=== PATIENT | female | born 1955 | race Caucasian/White ===

== ENCOUNTER 2024-06-16 16:39 | Observation (INO) | payer MEDICARE ==
[2024-06-16 19:31] LABS: Absolute Neutrophil Ct (ANC) 5.96 x10^3/uL (1.56-6.13); BASOPHIL % 0.3 % (0.1-1.2); Basophil (Absolute #) 0.02 x10^3/uL (0.01-0.08); Eosinophil % 2.2 % (0.7-5.8); Eosinophil (Absolute #) 0.17 x10^3/uL (0.04-0.36); Hematocrit 33.6 % (34.1-44.9); Hemoglobin 10.5 g/dL (11.2-15.7); IMMATURE GRAN # 0.04 x10^3u/L (0.001-0.031); IMMATURE GRAN % 0.5 % (0.001-0.429); Lymphocyte (Absolute #) 1.09 x10^3/uL (1.18-3.74); Mean Cell Volume 92.8 fL (79.4-94.8); Mean Corpuscular Hgb Concent. 31.3 g/dL (32.2-35.5); Mean Platelet Volume 10.5 fL (9.4-12.3); Monocyte (Absolute #) 0.48 x10^3/uL (0.24-0.86); Monocytes % 6.2 % (4.7-12.5); Neutrophil % 76.8 % (34.0-71.1); Platelet Count 246 x10^3/uL (182-369); Red Blood Count 3.62 x10^6/uL (3.93-5.22); Red Cell Distribution Width 12.5 % (11.7-14.4); White Blood Count 7.8 x10^3/uL (3.98-10.04)
[2024-06-16] MEDS ORDERED: Zofran 4 MG/2 ML VIAL ONE (19:33)
[2024-06-16] MEDS ORDERED: Sodium Chloride 0.9% 500 ML 500 ML IV ONE (19:33)
[2024-06-16] MEDS: Zofran 4 MG/2 ML VIAL IV ONE (19:35)
[2024-06-16] MEDS: Sodium Chloride 0.9% 500 ML 500 ML IV ONE (19:35)
[2024-06-16 19:41] LABS: Appearance Cloudy (Clear); Bacteria None Seen /HPF (None Seen); Bilirubin Negative (Negative); Blood Negative (Negative); Epithelial Cells None Seen /HPF (None Seen); Glucose, Urine >=1000 mg/dL (Negative); Hyaline Casts 20-50 /LPF (0-2); Ketones Negative (Negative); Leukocyte Esterase Small (Negative); Nitrite Negative (Negative); Ph 5.5 (4.6-8.0); Protein,Urine Dip 30 (Negative); RBC 0-2 /HPF (0-5); Specific Gravity 1.025 (1.005-1.030); WBC 21-50 /HPF (0-5)
[2024-06-16 19:42] LABS: ADD URINE CULTURE? YES (NO)
[2024-06-16 19:45] LABS: ALBUMIN 4.5 g/dL (3.5-5.0); ANION GAP 14.9 MEQ/L (5-15); BILIRUBIN,TOTAL 0.6 mg/dL (0.2-1.3); Calcium 10.1 mg/dL (8.4-10.2); Creatinine 1 1.91 mg/dL (0.52-1.04); EST GLOMERULAR FILTRATION RATE 27.7 ML/MIN; Total Protein 7.3 g/dL (6.3-8.2)
--- NOTE | 2024-06-16 19:51 | ERPHSYRPT ---
- History of Present Illness Time Seen by Provider: 06/16/24 19:10 Source: patient Exam Limitations: no limitations Patient Subjective Stated Complaint: pt states that she has been vomiting since thursday Triage Nursing Assessment: pt ambulated into the er; pt is axo x4; c/o vomiting; pt states 6/10 pain to head and abd; hyperactive bowel sounds in all quads; c/o N/V; denies diarrhea; abd soft, tender, round; skin PDW; no respiratory distress present; hypertensive Physician History: 69-year-old female presented in the ER with complaints of aches and pains all over with associated nausea and vomiting. Patient reports she had a positive contact with COVID-19 few days ago. This has been going on for the last 2 to 3 days ago. Patient denies any abdominal pain but feels weak fatigued tired and dehydrated. Reports having nonprojectile, nonbilious vomiting without hematemesis. No diarrhea. Also reported having subjective feeling of fever chills and headache and URI symptoms with congestion but no cough. Allergies/Adverse Reactions: temazepam [From Restoril] Allergy (Unknown, Verified 06/16/24 19:15) SHAKING Penicillins Allergy (Verified 06/16/24 19:15) Hives Home Medications: Aspirin EC 81 mg [Ecotrin 81 mg] 81 mg PO DAILY 08/09/12 [History] Metoprolol Tartrate 50 mg [Lopressor 50 MG] 100 mg PO BID 08/09/12 [History] Amlodipine Besylate 5 mg [Norvasc 5 mg] 2.5 mg PO HS 11/22/13 [History] Buprenorphine 1 each TD WEEKLY 06/16/24 [History] Bupropion HCl 150 mg Sr [Wellbutrin SR 150 MG] 150 mg PO DAILY 06/16/24 [History] Cetirizine HCl [Allergy Relief] 10 mg PO DAILY 06/16/24 [History] Empagliflozin [Jardiance] 10 mg PO DAILY 06/16/24 [History] Evolocumab [Repatha Sureclick] 140 mg SQ UD 06/16/24 [History] Fenofibrate Nanocrystallized [Fenofibrate] 145 mg PO DAILY 06/16/24 [History] Levothyroxine Sodium 88 Mcg [Synthroid 88 Mcg] 88 mcg PO DAILY 06/16/24 [History] Lisinopril/Hydrochlorothiazide [Lisinopril-Hctz 10-12.5 mg Tab] 1 each PO DAILY 06/16/24 [History] Multivit-Min/Iron/Folic/Lutein [Multivitamin Women 50 Plus Tab] 1 each PO DAILY 06/16/24 [History] Pantoprazole Sodium 40 mg PO DAILY 06/16/24 [History] Quetiapine Fumarate 50 mg PO BID 06/16/24 [History] Quetiapine Fumarate 300 mg PO HS 06/16/24 [History] Semaglutide [Ozempic] 1 mg SQ WEEKLY 06/16/24 [History] Trazodone HCl 50 mg [Desyrel 50 mg] 25 mg PO HS 06/16/24 [History] Hx Tetanus, Diphtheria Vaccination/Date Given: No Hx Influenza Vaccination/Date Given: No Hx Pneumococcal Vaccination/Date Given: No Travel Risk - International Travel Have you traveled outside of the country in past 3 weeks: No - Emerging Infectious Disease Are you exhibiting symptoms associated with any current EIDs: Yes Symptoms: Abdominal Pain, Headaches/Body Aches/, Vomitting - Review of Systems Constitutional: Fever, Chills, Fatigue, Weakness Eyes: No Symptoms Ears, Nose, & Throat: No Symptoms Respiratory: No Symptoms Cardiac: No Symptoms Abdominal/Gastrointestinal: Nausea, Vomiting Genitourinary Symptoms: No Symptoms Musculoskeletal: Myalgias Neurological: Headache Psychological: No Symptoms Hematologic/Lymphatic: No Symptoms Immunological/Allergic: No Symptoms - Past Medical History Pertinent Past Medical History: Yes Neurological History: Stroke ENT History: No Pertinent History Cardiac History: High Cholesterol, Hypertension Respiratory History: No Pertinent History Endocrine Medical History: Hypothyroidism Musculoskeletal History: Arthritis GI Medical History: GERD History: No Pertinent History Psycho-Social History: Depression Female Reproductive Disorders: Menstrual Problems - Past Surgical History Past Surgical History: Yes Neuro Surgical History: No Pertinent History Cardiac: No Pertinent History Respiratory: No Pertinent History Gastrointestinal: Appendectomy, Cholecystectomy Musculoskeletal: Joint Replacement, Orthopedic Surgery Female Surgical History: Section, Hysterectomy Other Surgical History: bilatreal knee replacement, discs removed from neck and back surgery, sinus surgery, tonisils. BRAD IN SPINE - Social History Smoking Status: Never smoker Exposure to second hand smoke: Yes Drug Use: none Patient Lives Alone: No - Social Determinants of Health Will the patient participate in the screening: Yes Do you worry about a steady place to live?: No Do you have any problems with any of the following?: No known problems In the past 12 months,have you had to go without utilities?: No Transportation Issues: No Has anyone in your support network made you feel unsafe?: No Have you or anyone in your house had to go without enough: No - Nursing Vital Signs Nursing Vital Signs: Initial Vital Signs Temperature 98.6 F 06/16/24 19:26 Pulse Rate 78 06/16/24 19:26 Respiratory Rate 18 06/16/24 19:26 Blood Pressure 146/70 06/16/24 19:26 O2 Sat by Pulse Oximetry 99 06/16/24 19:26 Pain Scale Pain Intensity 8 - Physical Exam General Appearance: no apparent distress, alert Eye Exam: PERRL/EOMI Ears, Nose, Throat Exam: moist mucous membranes, pharyngeal erythema Neck Exam: normal inspection, non-tender, supple, full range of motion Respiratory Exam: normal breath sounds, lungs clear Cardiovascular Exam: regular rate/rhythm, normal heart sounds Gastrointestinal/Abdomen Exam: soft, No normal bowel sounds (Hyperactive), No tenderness, No distention, No guarding Back Exam: normal inspection, normal range of motion Extremity Exam: normal inspection, normal range of motion Neurologic Exam: alert, oriented x 3, cooperative Skin Exam: normal color SpO2 Interpretation: normal SpO2: 98 O2 Delivery: Room Air - Course EKG Interpreted by Me: RATE (82), Sinus Rhythm, NORMAL INTERVALS, Q-wave, Non- specific ST Changes Ordered Tests: Medication Summary Generic Name Dose Route Start Last Admin Trade Name Freq PRN Reason Stop Dose Admin Acetaminophen 650 mg 06/17/24 16:45 06/17/24 17:05 Acetaminophen 325 Mg Tablet PO 07/17/24 16:44 650 mg Q6H PRN PRN Administration PAIN AND/OR FEVER Amlodipine Besylate 2.5 mg 06/17/24 22:00 06/17/24 21:41 Amlodipine Besylate 5 Mg Tablet PO 07/17/24 21:59 2.5 mg HS LAINEY Administration Aspirin 81 mg 06/17/24 10:00 06/18/24 10:06 Aspirin 81 Mg Tablet.Ec PO 09/29/24 09:59 81 mg DAILY LAINEY Administration Bupropion HCl 150 mg 06/17/24 10:00 06/18/24 10:06 Bupropion Hcl 150 Mg Tablet Sr PO 07/17/24 09:59 150 mg DAILY LAINEY Administration Fenofibrate 145 mg 06/17/24 10:00 06/18/24 10:06 Fenofibrate,Micronized 145 Mg Tablet PO 07/17/24 09:59 145 mg DAILY LAINEY Administration Heparin Sodium (Beef Lung) 5,000 unit 06/17/24 10:00 06/18/24 10:06 Heparin 5000 Units/0.5 Ml 5,000 Unit/0.5 Ml Syr SQ 07/17/24 09:59 5,000 unit BID LAINEY Administration Levothyroxine Sodium 88 mcg 06/17/24 10:00 06/18/24 07:43 Levothyroxine Sodium 88 Mcg Tablet PO 07/17/24 09:59 88 mcg DAILY LAINEY Administration Loratadine 10 mg 06/17/24 10:00 06/18/24 10:05 Loratadine 10 Mg Tablet PO 07/17/24 09:59 10 mg DAILY LAINEY Administration Metoprolol Tartrate 100 mg 06/17/24 10:00 06/18/24 10:05 Metoprolol Tartrate 50 Mg Tablet PO 07/17/24 09:59 100 mg BID LAINEY Administration Miscellaneous Information 1 each 06/17/24 08:15 Medication Intervention 1 Each Each 07/17/24 08:14 .RN TO CHECK LAINEY Multivitamins Therapeutic 1 tab 06/17/24 10:00 06/18/24 10:06 Multivitamins,Therapeutic 1 Tab Tab PO 07/17/24 09:59 1 tab DAILY LAINEY Administration Ondansetron HCl 4 mg 06/17/24 01:52 06/17/24 06:09 Ondansetron Hcl 4 Mg/2 Ml Vial IV 07/17/24 01:51 4 mg Q4H PRN PRN Administration NAUSEA/VOMITING Pantoprazole Sodium 40 mg 06/17/24 10:00 06/18/24 10:06 Protonix (Pantoprazole) 40 Mg Tablet PO 07/17/24 09:59 40 mg DAILY LAINEY Administration Quetiapine Fumarate 50 mg 06/17/24 08:00 06/18/24 07:43 Quetiapine Fumarate 25 Mg Tablet PO 07/17/24 07:59 50 mg BIDWM LAINEY Administration Quetiapine Fumarate 300 mg 06/17/24 22:00 06/17/24 21:41 Quetiapine Fumarate 100 Mg Tablet PO 07/17/24 21:59 300 mg HS LAINEY Administration Trazodone HCl 25 mg 06/17/24 22:00 06/17/24 21:32 Trazodone Hcl 50 Mg Tablet PO 07/17/24 21:59 25 mg HS LAINEY Administration Discontinued Medications Generic Name Dose Route Start Last Admin Trade Name Bhargavi PRN Reason Stop Dose Admin Acetaminophen 650 mg 06/16/24 23:29 06/16/24 23:40 Acetaminophen 325 Mg Tablet PO 06/16/24 23:30 650 mg STAT STA Administration Acetaminophen Confirm 06/16/24 23:28 Acetaminophen 325 Mg Tablet Administered 06/16/24 23:29 Dose 975 mg .ROUTE .STK-MED ONE Amlodipine Besylate 2.5 mg 06/17/24 06:06 06/17/24 06:13 Amlodipine Besylate 5 Mg Tablet PO 06/17/24 06:07 2.5 mg STAT ONE Administration Sodium Chloride 500 mls @ 500 mls/hr 06/16/24 19:15 06/16/24 21:16 Sodium Chloride 0.9% 500 Ml IV 06/16/24 20:14 Infused .Q1H ONE Infusion Sodium Chloride Confirm 06/16/24 19:33 Sodium Chloride 0.9% 500 Ml Administered 06/16/24 19:34 Dose 500 mls @ ud IV .STK-MED ONE Ceftriaxone Sodium 1 gm in 100 mls @ 200 mls/hr 06/16/24 20:42 06/16/24 21:16 Rocephin 1 Gm / 100 Ml Nacl IV 06/16/24 21:11 Infused STAT ONE Infusion Ceftriaxone Sodium Confirm 06/16/24 20:44 Rocephin 1 Gm / 100 Ml Nacl Administered 06/16/24 20:45 Dose 1 gm in 100 mls @ ud IV .STK-MED ONE Lactated Ringer's 1,000 mls @ 100 mls/hr 06/17/24 02:00 06/18/24 01:10 Lactated Ringers IV 07/17/24 01:59 100 mls/hr .Q10H LAINEY Administration Ceftriaxone Sodium 1 gm in 100 mls @ 200 mls/hr 06/17/24 22:00 06/17/24 21:19 Rocephin 1 Gm / 100 Ml Nacl IV 07/17/24 21:59 200 mls/hr HS LAINEY Administration Potassium Chloride 100 mls @ 50 mls/hr 06/17/24 08:00 06/17/24 14:04 Potassium Chloride 20 Meq In Water 100ml IV 06/17/24 15:59 50 mls/hr Q2H LAINEY Administration Ondansetron HCl 4 mg 06/16/24 19:14 06/16/24 19:35 Ondansetron Hcl 4 Mg/2 Ml Vial IV 06/16/24 19:15 4 mg STAT ONE Administration Ondansetron HCl Confirm 06/16/24 19:33 Ondansetron Hcl 4 Mg/2 Ml Vial Administered 06/16/24 19:34 Dose 4 mg .ROUTE .STK-MED ONE Trazodone HCl 25 mg 06/17/24 23:29 06/16/24 23:40 Trazodone Hcl 50 Mg Tablet PO 06/17/24 23:30 25 mg STAT ONE Administration Trazodone HCl Confirm 06/16/24 23:35 Trazodone Hcl 50 Mg Tablet Administered 06/16/24 23:36 Dose 50 mg .ROUTE .STK-MED ONE Lab/Rad Data: Laboratory Result Diagrams 06/16/24 19:15 06/16/24 19:15 Laboratory Results 06/16/24 06/16/24 06/16/24 Range/Units 19:53 19:31 19:31 WBC (3.98-10.04) x10^3/uL RBC (3.93-5.22) x10^6/uL Hgb (11.2-15.7) g/dL Hct (34.1-44.9) % MCV (79.4-94.8) fL MCH (25.6-32.2) pg MCHC (32.2-35.5) g/dL RDW (11.7-14.4) % Plt Count (182-369) x10^3/uL MPV (9.4-12.3) fL Gran % (34.0-71.1) % Immature Gran % (Auto) (0.001-0.429) % Nucleat RBC Rel Count (0.00-0.2) % Eos # (Auto) (0.04-0.36) x10^3/uL Immature Gran # (Auto) (0.001-0.031) x10^3u/L Absolute Lymphs (auto) (1.18-3.74) x10^3/uL Absolute Monos (auto) (0.24-0.86) x10^3/uL Absolute Nucleated RBC (0.00-0.012) x10^3u/L Lymphocytes % (19.3-51.7) % Monocytes % (4.7-12.5) % Eosinophils % (0.7-5.8) % Basophils % (0.1-1.2) % Absolute Granulocytes (1.56-6.13) x10^3/uL Basophils # (0.01-0.08) x10^3/uL Sodium (135-145) mmol/L Potassium (3.5-5.1) mmol/L Chloride (98-107) mmol/L Carbon Dioxide (22-30) mmol/L Anion Gap (5-15) MEQ/L BUN (7-17) mg/dL Creatinine (0.52-1.04) mg/dL Estimated GFR ML/MIN Glucose (74-106) mg/dL Lactic Acid 0.7 (0.4-2.0) Calcium (8.4-10.2) mg/dL Total Bilirubin (0.2-1.3) mg/dL AST (14-36) U/L ALT (0-35) U/L Alkaline Phosphatase (38-126) U/L Troponin I (0.000-0.033) ng/mL Serum Total Protein (6.3-8.2) g/dL Albumin (3.5-5.0) g/dL Lipase (23-300) U/L Urine Color (Yellow) Urine Appearance (Clear) Urine pH (4.6-8.0) Ur Specific [place] (1.005-1.030) Urine Protein (Negative) Urine Glucose (UA) (Negative) mg/dL Urine Ketones (Negative) Urine Blood (Negative) Urine Nitrite (Negative) Urine Bilirubin (Negative) Urine Urobilinogen (0.2) mg/dL Ur Leukocyte Esterase (Negative) U Hyaline Cast (Auto) (0-2) /LPF Urine Microscopic RBC (0-5) /HPF Urine Microscopic WBC (0-5) /HPF Ur Epithelial Cells (None Seen) /HPF Urine Bacteria (None Seen) /HPF Urine Culture Reflexed (NO) Influenza Type A Ag NEGATIVE (NEGATIVE) Influenza Type B Ag NEGATIVE (NEGATIVE) RSV (PCR) NEGATIVE (NEGATIVE) SARS-CoV-2 (PCR) NEGATIVE (NEGATIVE) Group A Strep Antibody NOT DETECTED (NEGATIVE) 06/16/24 06/16/24 06/16/24 Range/Units 19:15 19:15 19:15 WBC (3.98-10.04) x10^3/uL RBC (3.93-5.22) x10^6/uL Hgb (11.2-15.7) g/dL Hct (34.1-44.9) % MCV (79.4-94.8) fL MCH (25.6-32.2) pg MCHC (32.2-35.5) g/dL RDW (11.7-14.4) % Plt Count (182-369) x10^3/uL MPV (9.4-12.3) fL Gran % (34.0-71.1) % Immature Gran % (Auto) (0.001-0.429) % Nucleat RBC Rel Count (0.00-0.2) % Eos # (Auto) (0.04-0.36) x10^3/uL Immature Gran # (Auto) (0.001-0.031) x10^3u/L Absolute Lymphs (auto) (1.18-3.74) x10^3/uL Absolute Monos (auto) (0.24-0.86) x10^3/uL Absolute Nucleated RBC (0.00-0.012) x10^3u/L Lymphocytes % (19.3-51.7) % Monocytes % (4.7-12.5) % Eosinophils % (0.7-5.8) % Basophils % (0.1-1.2) % Absolute Granulocytes (1.56-6.13) x10^3/uL Basophils # (0.01-0.08) x10^3/uL Sodium 139 (135-145) mmol/L Potassium 4.0 (3.5-5.1) mmol/L Chloride 99 (98-107) mmol/L Carbon Dioxide 29 (22-30) mmol/L Anion Gap 14.9 (5-15) MEQ/L BUN 36 H (7-17) mg/dL Creatinine 1.91 H (0.52-1.04) mg/dL Estimated GFR 27.7 ML/MIN Glucose 98 (74-106) mg/dL Lactic Acid (0.4-2.0) Calcium 10.1 (8.4-10.2) mg/dL Total Bilirubin 0.60 (0.2-1.3) mg/dL AST 56 H (14-36) U/L ALT 33 (0-35) U/L Alkaline Phosphatase 49 (38-126) U/L Troponin I < 0.012 (0.000-0.033) ng/mL Serum Total Protein 7.3 (6.3-8.2) g/dL Albumin 4.5 (3.5-5.0) g/dL Lipase 220 (23-300) U/L Urine Color Yellow (Yellow) Urine Appearance Cloudy A (Clear) Urine pH 5.5 (4.6-8.0) Ur Specific [place] 1.025 (1.005-1.030) Urine Protein 30 (Negative) Urine Glucose (UA) >=1000 A (Negative) mg/dL Urine Ketones Negative (Negative) Urine Blood Negative (Negative) Urine Nitrite Negative (Negative) Urine Bilirubin Negative (Negative) Urine Urobilinogen 1.0 A (0.2) mg/dL Ur Leukocyte Esterase Small A (Negative) U Hyaline Cast (Auto) 20-50 (0-2) /LPF Urine Microscopic RBC 0-2 (0-5) /HPF Urine Microscopic WBC 21-50 A (0-5) /HPF Ur Epithelial Cells None Seen (None Seen) /HPF Urine Bacteria None Seen (None Seen) /HPF Urine Culture Reflexed YES (NO) Influenza Type A Ag (NEGATIVE) Influenza Type B Ag (NEGATIVE) RSV (PCR) (NEGATIVE) SARS-CoV-2 (PCR) (NEGATIVE) Group A Strep Antibody (NEGATIVE) 06/16/24 Range/Units 19:15 WBC 7.8 (3.98-10.04) x10^3/uL RBC 3.62 L (3.93-5.22) x10^6/uL Hgb 10.5 L (11.2-15.7) g/dL Hct 33.6 L (34.1-44.9) % MCV 92.8 (79.4-94.8) fL MCH 29.0 (25.6-32.2) pg MCHC 31.3 L (32.2-35.5) g/dL RDW 12.5 (11.7-14.4) % Plt Count 246 (182-369) x10^3/uL MPV 10.5 (9.4-12.3) fL Gran % 76.8 H (34.0-71.1) % Immature Gran % (Auto) 0.5 H (0.001-0.429) % Nucleat RBC Rel Count 0.0 (0.00-0.2) % Eos # (Auto) 0.17 (0.04-0.36) x10^3/uL Immature Gran # (Auto) 0.04 H (0.001-0.031) x10^3u/L Absolute Lymphs (auto) 1.09 L (1.18-3.74) x10^3/uL Absolute Monos (auto) 0.48 (0.24-0.86) x10^3/uL Absolute Nucleated RBC 0.00 (0.00-0.012) x10^3u/L Lymphocytes % 14.0 L (19.3-51.7) % Monocytes % 6.2 (4.7-12.5) % Eosinophils % 2.2 (0.7-5.8) % Basophils % 0.3 (0.1-1.2) % Absolute Granulocytes 5.96 (1.56-6.13) x10^3/uL Basophils # 0.02 (0.01-0.08) x10^3/uL Sodium (135-145) mmol/L Potassium (3.5-5.1) mmol/L Chloride (98-107) mmol/L Carbon Dioxide (22-30) mmol/L Anion Gap (5-15) MEQ/L BUN (7-17) mg/dL Creatinine (0.52-1.04) mg/dL Estimated GFR ML/MIN Glucose (74-106) mg/dL Lactic Acid (0.4-2.0) Calcium (8.4-10.2) mg/dL Total Bilirubin (0.2-1.3) mg/dL AST (14-36) U/L ALT (0-35) U/L Alkaline Phosphatase (38-126) U/L Troponin I (0.000-0.033) ng/mL Serum Total Protein (6.3-8.2) g/dL Albumin (3.5-5.0) g/dL Lipase (23-300) U/L Urine Color (Yellow) Urine Appearance (Clear) Urine pH (4.6-8.0) Ur Specific [place] (1.005-1.030) Urine Protein (Negative) Urine Glucose (UA) (Negative) mg/dL Urine Ketones (Negative) Urine Blood (Negative) Urine Nitrite (Negative) Urine Bilirubin (Negative) Urine Urobilinogen (0.2) mg/dL Ur Leukocyte Esterase (Negative) U Hyaline Cast (Auto) (0-2) /LPF Urine Microscopic RBC (0-5) /HPF Urine Microscopic WBC (0-5) /HPF Ur Epithelial Cells (None Seen) /HPF Urine Bacteria (None Seen) /HPF Urine Culture Reflexed (NO) Influenza Type A Ag (NEGATIVE) Influenza Type B Ag (NEGATIVE) RSV (PCR) (NEGATIVE) SARS-CoV-2 (PCR) (NEGATIVE) Group A Strep Antibody (NEGATIVE) - Progress Progress: improved Progress Note: 06/16/24 22:55 69-year-old is evaluated in the ER for nausea vomiting, abdominal discomfort and subjective feeling of fever chills and bodyaches. Patient has positive contact with COVID-19. She is given fluids wallets, workup showed negative COVID-19, normal white count, chemistries with a creatinine of 1.9 with a baseline of 0.9. Patient does have UTI and given a dose of Rocephin. Patient CT abdomen pelvis without contrast is negative for any acute finding but has diffuse fecal load. I believe patient has volume depletion because of vomiting, given fluids here do not I believe would benefit with continuous hydration and recheck of renal functions. Discussed with Dr. Bautista, reviewed history, workup, recommended obtaining EKG and troponin which are negative for any acute findings. Patient is being admitted. I have shared the results of workup with patient and plan of admission which she understands and agrees. Counseled pt/family regarding: lab results, diagnosis, need for follow-up, rad results Medical Desision Making - Discussion of managment Care discussed with:: hospitalist (Dr. Bautista) Reviewed:: Test results, Need for additional workup Agreed on:: Treatment plan, place in obs Will see patient: in hospital - Diagnostic Testing Diagnostic test were ordered, analyzed, and reviewed by me: Yes Radiological Interpretation: Reviewed by me, Teleradiologist Report - Risk of complications The pt has a mod risk of morbidity or mortality based on: Need for minor surgical intervention in patient with know risk factors The pt has a high risk of morbidity or mortality based on: Decision regarding hospitilization or escalation of hosp level of care - Departure Departure Disposition: Observation Clinical Impression: Acute renal failure, Viral syndrome, Nausea & vomiting, Acute UTI (urinary tract infection) Condition: Stable Critical Care Time: No
[2024-06-16 20:09] LABS: INFLUENZA A NEGATIVE (NEGATIVE); INFLUENZA B NEGATIVE (NEGATIVE); RESPIRATORY SYNCTIAL VIRUS NEGATIVE (NEGATIVE); SARS-CoV-2 Xpert Express NEGATIVE (NEGATIVE)
[2024-06-16] MEDS ORDERED: ROCEPHIN 1 GM / 100 ML NaCl 1 GM/100 ML IVPB IV ONE (20:44)
[2024-06-16] MEDS: ROCEPHIN 1 GM / 100 ML NaCl 1 GM/100 ML IVPB IV ONE (20:45)
[2024-06-16] MEDS ORDERED: TYLENOL 325 MG ONE (23:28)
[2024-06-16] MEDS ORDERED: DESYREL 50 MG ONE (23:35)
[2024-06-16] MEDS: TYLENOL 325 MG PO STA (23:40)
[2024-06-16] MEDS: DESYREL 50 MG PO ONE (23:40)
[2024-06-17] MEDS ORDERED: NON-FORMULARY ITEM (Semaglutide [Ozempic] 1 MG/0.75 ML Pen.Injctr) SQ SCH (01:45)
--- NOTE | 2024-06-17 01:56 | PCM.HP ---
History of Present Illness - Chief Complaint Chief Complaint: Acute renal failure, nausea vomiting, viral syndrome Date: 06/17/24 History of Present Illness: Ms. Valencia is a 69 year-old female with hypothyroidism, HTN, HLD, and a prior CVA who presents with nausea and vomiting. She admits four days of symptoms, and upon arrival to [facility], her laboratory data was remarkable for a UTI, chronic anemia, and an elevated Cr. Imaging was unremarkable. On my examination, she is feeling better denying any current fevers, chills, nausea, vomiting, diarrhea, syncope, presyncope, visual changes, orthopnea, PND, odynophagia, dysphagia, chest pain, shortness of breath, belly pain, dysuria, hematuria, melena, hematochezia, or neurological changes. All other systems were reviewed and were negative. - Review of Systems Constitutional: Other ( PER HPI) Medications & Allergies Home Medications: Home Medication List Aspirin EC 81 mg [Ecotrin 81 mg] 81 mg PO DAILY 08/09/12 [History Confirmed 06/16/24] Metoprolol Tartrate 50 mg [Lopressor 50 MG] 100 mg PO BID 08/09/12 [History Confirmed 06/16/24] Amlodipine Besylate 5 mg [Norvasc 5 mg] 2.5 mg PO HS 11/22/13 [History Confirmed 06/16/24] Buprenorphine 1 each TD WEEKLY 06/16/24 [History Confirmed 06/16/24] Bupropion HCl 150 mg Sr [Wellbutrin SR 150 MG] 150 mg PO DAILY 06/16/24 [History Confirmed 06/16/24] Cetirizine HCl [Allergy Relief] 10 mg PO DAILY 06/16/24 [History Confirmed 06/16/24] Empagliflozin [Jardiance] 10 mg PO DAILY 06/16/24 [History Confirmed 06/16/24] Evolocumab [Repatha Sureclick] 140 mg SQ UD 06/16/24 [History Confirmed 06/16/24] Fenofibrate Nanocrystallized [Fenofibrate] 145 mg PO DAILY 06/16/24 [History Confirmed 06/16/24] Levothyroxine Sodium 88 Mcg [Synthroid 88 Mcg] 88 mcg PO DAILY 06/16/24 [History Confirmed 06/16/24] Lisinopril/Hydrochlorothiazide [Lisinopril-Hctz 10-12.5 mg Tab] 1 each PO DAILY 06/16/24 [History Confirmed 06/16/24] Multivit-Min/Iron/Folic/Lutein [Multivitamin Women 50 Plus Tab] 1 each PO DAILY 06/16/24 [History Confirmed 06/16/24] Pantoprazole Sodium 40 mg PO DAILY 06/16/24 [History Confirmed 06/16/24] Quetiapine Fumarate 50 mg PO BID 06/16/24 [History Confirmed 06/16/24] Quetiapine Fumarate 300 mg PO HS 06/16/24 [History Confirmed 06/16/24] Semaglutide [Ozempic] 1 mg SQ WEEKLY 06/16/24 [History Confirmed 06/16/24] Trazodone HCl 50 mg [Desyrel 50 mg] 25 mg PO HS 06/16/24 [History Confirmed 06/17/24] Allergies/Adverse Reactions: Allergies Allergy/AdvReac Type Severity Reaction Status Date / Time temazepam [From Restoril] Allergy Unknown SHAKING Verified 06/16/24 19:15 Penicillins Allergy Hives Verified 06/16/24 19:15 - Past Medical History Past Medical History: Yes Neurological History: Stroke ENT History: No Pertinent History Cardiac History: High Cholesterol, Hypertension Respiratory History: No Pertinent History Endocrine Medical History: Hypothyroidism Musculoskelatal History: Arthritis GI Medical History: GERD History: No Pertinent History, Renal Disease Pyscho-Social History: Depression Reproductive Disorders: Menstrual Problems - Past Surgical History Past Surgical History: Yes Neuro Surgical History: No Pertinent History Cardiac History: No Pertinent History Respiratory Surgery: No Pertinent History GI Surgical History: Appendectomy, Cholecystectomy Genitourinary Surgical Hx: No Pertinent History Musculskeletal Surgical Hx: Joint Replacement, Orthopedic Surgery Female Surgical History: Section, Hysterectomy Other Surgical History: bilatreal knee replacement, discs removed from neck and back surgery, sinus surgery, tonisils; not sure but some sort of surgery through urethra as a teenager. [facility] Significant Family History: no pertinent family hx - Social History Smoking Status: Never smoker Exposure to second hand smoke: No Alcohol: None Drug Use: none - Social Determinants of Health Will the patient participate in the screening: Yes Do you worry about a steady place to live?: No Do you have any problems with any of the following?: No known problems In the past 12 months,have you had to go without utilities?: No Have you or anyone in your house had to go without enough: No Transportation Issues: No Has anyone in your support network made you feel unsafe?: No Does the patient want assistance with any of the above?: No - Physical Exam Vital Signs: Vital Signs - 24 hr Temp Pulse Resp BP BP Pulse Ox 06/17/24 00:52 99.0 F 81 18 161/72 98 06/16/24 23:53 98 06/16/24 23:30 81 139/67 100 06/16/24 23:00 70 141/60 97 06/16/24 22:31 75 143/55 97 06/16/24 22:00 72 162/74 96 06/16/24 21:31 80 142/64 97 06/16/24 21:00 85 138/118 98 06/16/24 20:30 79 142/65 95 06/16/24 20:01 76 133/60 96 06/16/24 19:30 78 156/66 98 06/16/24 19:26 98.6 F 78 18 146/70 99 General Appearance: no apparent distress, alert Neurologic Exam: alert, oriented x 3, cooperative, normal mood/affect, nml cerebellar function, nml station & gait, sensation nml, No motor deficits Eye Exam: PERRL/EOMI, eyes nml inspection Ears, Nose, Throat Exam: normal ENT inspection, TMs normal, pharynx normal, moist mucous membranes Neck Exam: normal inspection, non-tender, supple, full range of motion Respiratory Exam: normal breath sounds, lungs clear, No respiratory distress Cardiovascular Exam: regular rate/rhythm, normal heart sounds, normal peripheral pulses Gastrointestinal/Abdomen Exam: soft, normal bowel sounds, No tenderness, No mass Back Exam: normal inspection, normal range of motion, No CVA tenderness, No vertebral tenderness Extremity Exam: normal inspection, normal range of motion, pelvis stable Skin Exam: normal color, warm, dry, No rash Lymphatic Exam: No adenopathy Results - Labs Lab/Micro Results: Lab Results-Last 24 Hours 06/16/24 06/16/24 06/16/24 Range/Units 19:15 19:15 19:15 WBC 7.8 (3.98-10.04) x10^3/uL RBC 3.62 L (3.93-5.22) x10^6/uL Hgb 10.5 L (11.2-15.7) g/dL Hct 33.6 L (34.1-44.9) % MCV 92.8 (79.4-94.8) fL MCH 29.0 (25.6-32.2) pg MCHC 31.3 L (32.2-35.5) g/dL RDW 12.5 (11.7-14.4) % Plt Count 246 (182-369) x10^3/uL MPV 10.5 (9.4-12.3) fL Gran % 76.8 H (34.0-71.1) % Immature Gran % (Auto) 0.5 H (0.001-0.429) % Nucleat RBC Rel Count 0.0 (0.00-0.2) % Eos # (Auto) 0.17 (0.04-0.36) x10^3/uL Immature Gran # (Auto) 0.04 H (0.001-0.031) x10^3u/L Absolute Lymphs (auto) 1.09 L (1.18-3.74) x10^3/uL Absolute Monos (auto) 0.48 (0.24-0.86) x10^3/uL Absolute Nucleated RBC 0.00 (0.00-0.012) x10^3u/L Lymphocytes % 14.0 L (19.3-51.7) % Monocytes % 6.2 (4.7-12.5) % Eosinophils % 2.2 (0.7-5.8) % Basophils % 0.3 (0.1-1.2) % Absolute Granulocytes 5.96 (1.56-6.13) x10^3/uL Basophils # 0.02 (0.01-0.08) x10^3/uL Sodium 139 (135-145) mmol/L Potassium 4.0 (3.5-5.1) mmol/L Chloride 99 (98-107) mmol/L Carbon Dioxide 29 (22-30) mmol/L Anion Gap 14.9 (5-15) MEQ/L BUN 36 H (7-17) mg/dL Creatinine 1.91 H (0.52-1.04) mg/dL Estimated GFR 27.7 ML/MIN Glucose 98 (74-106) mg/dL Lactic Acid (0.4-2.0) Calcium 10.1 (8.4-10.2) mg/dL Total Bilirubin 0.60 (0.2-1.3) mg/dL AST 56 H (14-36) U/L ALT 33 (0-35) U/L Alkaline Phosphatase 49 (38-126) U/L Troponin I (0.000-0.033) ng/mL Serum Total Protein 7.3 (6.3-8.2) g/dL Albumin 4.5 (3.5-5.0) g/dL Lipase 220 (23-300) U/L Urine Color Yellow (Yellow) Urine Appearance Cloudy A (Clear) Urine pH 5.5 (4.6-8.0) Ur Specific [place] 1.025 (1.005-1.030) Urine Protein 30 (Negative) Urine Glucose (UA) >=1000 A (Negative) mg/dL Urine Ketones Negative (Negative) Urine Blood Negative (Negative) Urine Nitrite Negative (Negative) Urine Bilirubin Negative (Negative) Urine Urobilinogen 1.0 A (0.2) mg/dL Ur Leukocyte Esterase Small A (Negative) U Hyaline Cast (Auto) 20-50 (0-2) /LPF Urine Microscopic RBC 0-2 (0-5) /HPF Urine Microscopic WBC 21-50 A (0-5) /HPF Ur Epithelial Cells None Seen (None Seen) /HPF Urine Bacteria None Seen (None Seen) /HPF Urine Culture Reflexed YES (NO) Influenza Type A Ag (NEGATIVE) Influenza Type B Ag (NEGATIVE) RSV (PCR) (NEGATIVE) SARS-CoV-2 (PCR) (NEGATIVE) Group A Strep Antibody (NEGATIVE) 06/16/24 06/16/24 06/16/24 Range/Units 19:15 19:31 19:31 WBC (3.98-10.04) x10^3/uL RBC (3.93-5.22) x10^6/uL Hgb (11.2-15.7) g/dL Hct (34.1-44.9) % MCV (79.4-94.8) fL MCH (25.6-32.2) pg MCHC (32.2-35.5) g/dL RDW (11.7-14.4) % Plt Count (182-369) x10^3/uL MPV (9.4-12.3) fL Gran % (34.0-71.1) % Immature Gran % (Auto) (0.001-0.429) % Nucleat RBC Rel Count (0.00-0.2) % Eos # (Auto) (0.04-0.36) x10^3/uL Immature Gran # (Auto) (0.001-0.031) x10^3u/L Absolute Lymphs (auto) (1.18-3.74) x10^3/uL Absolute Monos (auto) (0.24-0.86) x10^3/uL Absolute Nucleated RBC (0.00-0.012) x10^3u/L Lymphocytes % (19.3-51.7) % Monocytes % (4.7-12.5) % Eosinophils % (0.7-5.8) % Basophils % (0.1-1.2) % Absolute Granulocytes (1.56-6.13) x10^3/uL Basophils # (0.01-0.08) x10^3/uL Sodium (135-145) mmol/L Potassium (3.5-5.1) mmol/L Chloride (98-107) mmol/L Carbon Dioxide (22-30) mmol/L Anion Gap (5-15) MEQ/L BUN (7-17) mg/dL Creatinine (0.52-1.04) mg/dL Estimated GFR ML/MIN Glucose (74-106) mg/dL Lactic Acid (0.4-2.0) Calcium (8.4-10.2) mg/dL Total Bilirubin (0.2-1.3) mg/dL AST (14-36) U/L ALT (0-35) U/L Alkaline Phosphatase (38-126) U/L Troponin I < 0.012 (0.000-0.033) ng/mL Serum Total Protein (6.3-8.2) g/dL Albumin (3.5-5.0) g/dL Lipase (23-300) U/L Urine Color (Yellow) Urine Appearance (Clear) Urine pH (4.6-8.0) Ur Specific [place] (1.005-1.030) Urine Protein (Negative) Urine Glucose (UA) (Negative) mg/dL Urine Ketones (Negative) Urine Blood (Negative) Urine Nitrite (Negative) Urine Bilirubin (Negative) Urine Urobilinogen (0.2) mg/dL Ur Leukocyte Esterase (Negative) U Hyaline Cast (Auto) (0-2) /LPF Urine Microscopic RBC (0-5) /HPF Urine Microscopic WBC (0-5) /HPF Ur Epithelial Cells (None Seen) /HPF Urine Bacteria (None Seen) /HPF Urine Culture Reflexed (NO) Influenza Type A Ag NEGATIVE (NEGATIVE) Influenza Type B Ag NEGATIVE (NEGATIVE) RSV (PCR) NEGATIVE (NEGATIVE) SARS-CoV-2 (PCR) NEGATIVE (NEGATIVE) Group A Strep Antibody NOT DETECTED (NEGATIVE) 06/16/24 Range/Units 19:53 WBC (3.98-10.04) x10^3/uL RBC (3.93-5.22) x10^6/uL Hgb (11.2-15.7) g/dL Hct (34.1-44.9) % MCV (79.4-94.8) fL MCH (25.6-32.2) pg MCHC (32.2-35.5) g/dL RDW (11.7-14.4) % Plt Count (182-369) x10^3/uL MPV (9.4-12.3) fL Gran % (34.0-71.1) % Immature Gran % (Auto) (0.001-0.429) % Nucleat RBC Rel Count (0.00-0.2) % Eos # (Auto) (0.04-0.36) x10^3/uL Immature Gran # (Auto) (0.001-0.031) x10^3u/L Absolute Lymphs (auto) (1.18-3.74) x10^3/uL Absolute Monos (auto) (0.24-0.86) x10^3/uL Absolute Nucleated RBC (0.00-0.012) x10^3u/L Lymphocytes % (19.3-51.7) % Monocytes % (4.7-12.5) % Eosinophils % (0.7-5.8) % Basophils % (0.1-1.2) % Absolute Granulocytes (1.56-6.13) x10^3/uL Basophils # (0.01-0.08) x10^3/uL Sodium (135-145) mmol/L Potassium (3.5-5.1) mmol/L Chloride (98-107) mmol/L Carbon Dioxide (22-30) mmol/L Anion Gap (5-15) MEQ/L BUN (7-17) mg/dL Creatinine (0.52-1.04) mg/dL Estimated GFR ML/MIN Glucose (74-106) mg/dL Lactic Acid 0.7 (0.4-2.0) Calcium (8.4-10.2) mg/dL Total Bilirubin (0.2-1.3) mg/dL AST (14-36) U/L ALT (0-35) U/L Alkaline Phosphatase (38-126) U/L Troponin I (0.000-0.033) ng/mL Serum Total Protein (6.3-8.2) g/dL Albumin (3.5-5.0) g/dL Lipase (23-300) U/L Urine Color (Yellow) Urine Appearance (Clear) Urine pH (4.6-8.0) Ur Specific [place] (1.005-1.030) Urine Protein (Negative) Urine Glucose (UA) (Negative) mg/dL Urine Ketones (Negative) Urine Blood (Negative) Urine Nitrite (Negative) Urine Bilirubin (Negative) Urine Urobilinogen (0.2) mg/dL Ur Leukocyte Esterase (Negative) U Hyaline Cast (Auto) (0-2) /LPF Urine Microscopic RBC (0-5) /HPF Urine Microscopic WBC (0-5) /HPF Ur Epithelial Cells (None Seen) /HPF Urine Bacteria (None Seen) /HPF Urine Culture Reflexed (NO) Influenza Type A Ag (NEGATIVE) Influenza Type B Ag (NEGATIVE) RSV (PCR) (NEGATIVE) SARS-CoV-2 (PCR) (NEGATIVE) Group A Strep Antibody (NEGATIVE) - Radiology Impressions Radiology Exams & Impressions: Radiology Procedures Category Date Time Status ABDOMEN AND PELVIS W/0 CONTRAS [CT] Stat Exams 06/16/24 21:23 Taken Assessment/Plan (1) Acute UTI (urinary tract infection) Current Visit: Yes Status: Acute Assessment & Plan: ANTIBIOTICS AND STEROIDS Ceftriaxone ASSESSMENT 1. Urinary Tract Infection 2. Acute Kidney Injury 3. Hypertension 4. Hypothyroidism 5. Hyperlipidemia 6. Cerebrovascular Disease 7. Chronic Anemia PLAN 1. Gentle fluids 2. Ceftriaxone 3. UCx pending 4. Follow Cr 5. Continue antihypertensive regimen 6. Continue synthroid SQ Heparin/PPI The entirety of this encounter was done via telemedicine with audio and visual. Consent was obtained for a telemedicine encounter. Neptali Bautista MD Pulmonary and Critical Care Medicine Code(s): N39.0 - URINARY TRACT INFECTION, SITE NOT SPECIFIED Telemedicine Encounter - Telemedicine Encounter Telemedicine Encounter: "The entirety of this encounter was performed via Telemedicine" This visit was performed using real-time audio and video connection between my location and thepatients locationwith the assistance of a surrogateat the patients location. Written or verbal consent was obtained from the patient/guardian to perform this visit [email or web address]. Any patient questions regarding the telemedicine interaction were answered.
[2024-06-17] MEDS: Zofran 4 MG/2 ML VIAL IV PRN (02:06)
[2024-06-17] MEDS: Lactated Ringers 1,000 ML IV SCH (02:14)
[2024-06-17 05:46] LABS: Absolute Neutrophil Ct (ANC) 4.13 x10^3/uL (1.56-6.13); BASOPHIL % 0.5 % (0.1-1.2); Basophil (Absolute #) 0.03 x10^3/uL (0.01-0.08); Eosinophil % 4.7 % (0.7-5.8); Hematocrit 31.7 % (34.1-44.9); Hemoglobin 9.8 g/dL (11.2-15.7); IMMATURE GRAN # 0.02 x10^3u/L (0.001-0.031); IMMATURE GRAN % 0.3 % (0.001-0.429); Lymphocyte (Absolute #) 1.47 x10^3/uL (1.18-3.74); Mean Corpuscular Hemoglobin 28.7 pg (25.6-32.2); Mean Corpuscular Hgb Concent. 30.9 g/dL (32.2-35.5); Mean Platelet Volume 10.9 fL (9.4-12.3); Monocyte (Absolute #) 0.45 x10^3/uL (0.24-0.86); Neutrophil % 64.5 % (34.0-71.1); Platelet Count 210 x10^3/uL (182-369); Red Blood Count 3.41 x10^6/uL (3.93-5.22); Red Cell Distribution Width 12.5 % (11.7-14.4); White Blood Count 6.4 x10^3/uL (3.98-10.04)
[2024-06-17] MEDS: NORVASC 5 MG PO ONE (06:13)
[2024-06-17 06:17] LABS: ALBUMIN 3.7 g/dL (3.5-5.0); ANION GAP 13.1 MEQ/L (5-15); BILIRUBIN,TOTAL 0.5 mg/dL (0.2-1.3); Calcium 9.3 mg/dL (8.4-10.2); Creatinine 1 1.61 mg/dL (0.52-1.04); Potassium 3.3 mmol/L (3.5-5.1)
[2024-06-17] MEDS ORDERED: MEDICATION INTERVENTION MC SCH (08:15)
[2024-06-17] MEDS: Seroquel 25 MG PO SCH (08:24)
[2024-06-17] MEDS: POTASSIUM CHLORIDE 20 mEq IN WATER 100ML 100 ML IV SCH (08:24)
--- NOTE | 2024-06-17 08:52 | XRAY ---
Indication: Pain, nausea, vomiting, and diarrhea. Multiple contiguous axial images obtained through the abdomen and pelvis without contrast. Comparison: None Lung bases demonstrates minimal subsegmental atelectasis/scarring. No infiltrate or effusion. Heart not enlarged. Left hilar calcified nodes. Noncontrasted stomach and bowel loops appear nonobstructed. There is mild diffuse scattered colonic fecal debris throughout. Appendectomy, cholecystectomy, and hysterectomy. Right making demonstrates 5 mm angiomyolipoma. No free fluid/air. Remaining liver, pancreas, spleen, adrenal glands, kidneys, ureters, and bladder are unremarkable for noncontrast exam. Mild scattered aortoiliac calcifications without AAA. Osseous structures intact with mild/moderate degenerative changes throughout the thoracolumbar spine. Small fatty periumbilical ventral hernia. Impression: 1. Mild diffuse fecal stasis without obstruction. 2. Chronic findings including right renal angiomyolipoma, fatty ventral hernia, arteriosclerotic disease, chronic bony findings, and old granulomatous disease. 3. Remaining CT abdomen/pelvis without contrast exam is negative.
[2024-06-17] MEDS: HEPARIN 5000 UNITS/0.5 ML (HIGH RISK MED) SQ SCH (09:10)
[2024-06-17] MEDS: ECOTRIN 81 MG PO SCH (09:10)
[2024-06-17] MEDS: THERAGRAN MULTIVITAMIN PO SCH (09:11)
[2024-06-17] MEDS: Wellbutrin SR 150 MG PO SCH (09:11)
[2024-06-17] MEDS: Lopressor 50 MG PO SCH (09:11)
[2024-06-17] MEDS: CLARITIN 10 MG PO SCH (09:12)
[2024-06-17] MEDS: Protonix 40MG Tablet PO SCH (09:12)
[2024-06-17] MEDS: Tricor 145 MG PO SCH (09:12)
[2024-06-17] MEDS: SYNTHROID 88 MCG PO SCH (10:04)
[2024-06-17] MEDS: TYLENOL 325 MG PO PRN (17:05)
[2024-06-17] MEDS: ROCEPHIN 1 GM / 100 ML NaCl 1 GM/100 ML IVPB IV SCH (21:19)
[2024-06-17] MEDS: DESYREL 50 MG PO SCH (21:32)
[2024-06-17] MEDS: NORVASC 5 MG PO SCH (21:41)
[2024-06-17] MEDS: Seroquel 100 MG PO SCH (21:41)
[2024-06-18 07:50] LABS: Hemoglobin 10.1 g/dL (11.2-15.7); Mean Corpuscular Hemoglobin 29.4 pg (25.6-32.2); Mean Corpuscular Hgb Concent. 31.6 g/dL (32.2-35.5); Mean Platelet Volume 10.3 fL (9.4-12.3); Platelet Count 216 x10^3/uL (182-369); Red Blood Count 3.44 x10^6/uL (3.93-5.22); Red Cell Distribution Width 12.4 % (11.7-14.4); White Blood Count 4.6 x10^3/uL (3.98-10.04)
[2024-06-18 08:03] LABS: ALBUMIN 3.7 g/dL (3.5-5.0); ANION GAP 10.2 MEQ/L (5-15); BILIRUBIN,TOTAL 0.4 mg/dL (0.2-1.3); Creatinine 1 1.15 mg/dL (0.52-1.04); EST GLOMERULAR FILTRATION RATE 50.9 ML/MIN; Total Protein 6.1 g/dL (6.3-8.2)
[2024-06-18 11:43] VITALS: BP 150/67; PULSE 65; RESP 18; TEMP 97.5
--- NOTE | 2024-06-18 12:04 | PCM.DS ---
Discharge Summary Date of Admission: 06/16/24 23:50 Date of Discharge: 06/18/24 Admitting Physician: HUMPHREY GARCIA MD Primary Care Provider: HANSEL GOODWIN Allergies Allergies temazepam [From Restoril] Allergy (Unknown, Verified 06/16/24 19:15) SHAKING Penicillins Allergy (Verified 06/16/24 19:15) [facility] Summary - Hospital Course Hospital Course: 06/18/24 Ms. Valencia is a 69 year-old female with hypothyroidism, HTN, HLD, and a prior CVA. She presented on 06/17/24 with nausea and vomiting. She admits four days of symptoms, and upon arrival to [place], her laboratory data was remarkable for a UTI, chronic anemia, and an elevated Cr. Imaging was unremarkable. Since admission she is feeling better denying any current fevers, chills, nausea, vomiting, diarrhea, syncope, presyncope, visual changes, orthopnea, PND, odynophagia, dysphagia, chest pain, shortness of breath, belly pain, dysuria, hematuria, melena, hematochezia, or neurological changes. All other systems were reviewed and were negative.UC negative for UTI and antibiotics stopped. Creat 1.15 BL normal. She was able to tolerate a clear liquid diet this AM. If she is able to eat a regular diet w/o concerns at lunch she can d/c. She is wanting to d/c today. Will Continue IVF for SHENA until d/c. she will need OP f/u labs with PCP. Right upper arm swollen, ice pack applied and elevated. Unable to order MRI or US today as hey are not available on the weekends. She has no erythema or warmth to bicep region. It can be seen where a tourniquet was on her for morning lab draw under the swelling region. explained she will need to f/u OP with PCP and if does not improved f/u with ortho OP. - Vitals & Intake/Output Vital Signs: Vital Signs Temperature 97.5 F 06/18/24 11:41 Pulse Rate 65 06/18/24 11:41 Respiratory Rate 18 06/18/24 11:41 Blood Pressure 150/67 06/18/24 11:41 O2 Sat by Pulse Oximetry 99 06/18/24 11:41 Intake & Output: Intake & Output 06/15/24 06/16/24 06/17/24 06/18/24 11:59 11:59 11:59 11:59 Intake Total 4008 Output Total 1 Balance 4007 Weight 73.709 kg - Lab Result Diagrams: 06/18/24 07:51 06/18/24 07:51 Lab Results-Last 24 Hrs: Lab Results-Last 24 Hours 06/17/24 06/17/24 06/17/24 Range/Units 05:30 16:12 18:16 WBC (3.98-10.04) x10^3/uL RBC (3.93-5.22) x10^6/uL Hgb (11.2-15.7) g/dL Hct (34.1-44.9) % MCV (79.4-94.8) fL MCH (25.6-32.2) pg MCHC (32.2-35.5) g/dL RDW (11.7-14.4) % Plt Count (182-369) x10^3/uL MPV (9.4-12.3) fL Sodium (135-145) mmol/L Potassium (3.5-5.1) mmol/L Chloride (98-107) mmol/L Carbon Dioxide (22-30) mmol/L Anion Gap (5-15) MEQ/L BUN (7-17) mg/dL Creatinine (0.52-1.04) mg/dL Estimated GFR ML/MIN Glucose (74-106) mg/dL POC Glucometer 61 L 164 H (74 to 106) mg/dL Hemoglobin A1c 4.96 (4.5-6.0) % Calcium (8.4-10.2) mg/dL Magnesium (1.6-2.3) mg/dL Total Bilirubin (0.2-1.3) mg/dL AST (14-36) U/L ALT (0-35) U/L Alkaline Phosphatase (38-126) U/L Serum Total Protein (6.3-8.2) g/dL Albumin (3.5-5.0) g/dL 06/17/24 06/17/24 06/18/24 Range/Units 18:54 21:10 06:41 WBC (3.98-10.04) x10^3/uL RBC (3.93-5.22) x10^6/uL Hgb (11.2-15.7) g/dL Hct (34.1-44.9) % MCV (79.4-94.8) fL MCH (25.6-32.2) pg MCHC (32.2-35.5) g/dL RDW (11.7-14.4) % Plt Count (182-369) x10^3/uL MPV (9.4-12.3) fL Sodium (135-145) mmol/L Potassium 4.4 D (3.5-5.1) mmol/L Chloride (98-107) mmol/L Carbon Dioxide (22-30) mmol/L Anion Gap (5-15) MEQ/L BUN (7-17) mg/dL Creatinine (0.52-1.04) mg/dL Estimated GFR ML/MIN Glucose (74-106) mg/dL POC Glucometer 84 77 (74 to 106) mg/dL Hemoglobin A1c (4.5-6.0) % Calcium (8.4-10.2) mg/dL Magnesium (1.6-2.3) mg/dL Total Bilirubin (0.2-1.3) mg/dL AST (14-36) U/L ALT (0-35) U/L Alkaline Phosphatase (38-126) U/L Serum Total Protein (6.3-8.2) g/dL Albumin (3.5-5.0) g/dL 06/18/24 06/18/24 06/18/24 Range/Units 07:51 07:51 07:51 WBC 4.6 (3.98-10.04) x10^3/uL RBC 3.44 L (3.93-5.22) x10^6/uL Hgb 10.1 L (11.2-15.7) g/dL Hct 32.0 L (34.1-44.9) % MCV 93.0 (79.4-94.8) fL MCH 29.4 (25.6-32.2) pg MCHC 31.6 L (32.2-35.5) g/dL RDW 12.4 (11.7-14.4) % Plt Count 216 (182-369) x10^3/uL MPV 10.3 (9.4-12.3) fL Sodium 139 (135-145) mmol/L Potassium 4.0 (3.5-5.1) mmol/L Chloride 103 (98-107) mmol/L Carbon Dioxide 29 (22-30) mmol/L Anion Gap 10.2 (5-15) MEQ/L BUN 20 H (7-17) mg/dL Creatinine 1.15 H (0.52-1.04) mg/dL Estimated GFR 50.9 ML/MIN Glucose 88 (74-106) mg/dL POC Glucometer (74 to 106) mg/dL Hemoglobin A1c (4.5-6.0) % Calcium 10.0 (8.4-10.2) mg/dL Magnesium 1.8 (1.6-2.3) mg/dL Total Bilirubin 0.40 (0.2-1.3) mg/dL AST 43 H (14-36) U/L ALT 26 (0-35) U/L Alkaline Phosphatase 45 (38-126) U/L Serum Total Protein 6.1 L (6.3-8.2) g/dL Albumin 3.7 (3.5-5.0) g/dL 06/18/24 Range/Units 11:24 WBC (3.98-10.04) x10^3/uL RBC (3.93-5.22) x10^6/uL Hgb (11.2-15.7) g/dL Hct (34.1-44.9) % MCV (79.4-94.8) fL MCH (25.6-32.2) pg MCHC (32.2-35.5) g/dL RDW (11.7-14.4) % Plt Count (182-369) x10^3/uL MPV (9.4-12.3) fL Sodium (135-145) mmol/L Potassium (3.5-5.1) mmol/L Chloride (98-107) mmol/L Carbon Dioxide (22-30) mmol/L Anion Gap (5-15) MEQ/L BUN (7-17) mg/dL Creatinine (0.52-1.04) mg/dL Estimated GFR ML/MIN Glucose (74-106) mg/dL POC Glucometer 99 (74 to 106) mg/dL Hemoglobin A1c (4.5-6.0) % Calcium (8.4-10.2) mg/dL Magnesium (1.6-2.3) mg/dL Total Bilirubin (0.2-1.3) mg/dL AST (14-36) U/L ALT (0-35) U/L Alkaline Phosphatase (38-126) U/L Serum Total Protein (6.3-8.2) g/dL Albumin (3.5-5.0) g/dL Micro Results-Entire Visit: Microbiology 06/16/24 19:15 Urine Culture - Final Clean Catch Midstream <10K NORMAL SKIN RIGO PROBABLE SKIN CONTAMINANT Accuchecks Date 06/18/24 Date 06/18/24 Date 06/17/24 Date 06/17/24 Time 07:38 Time 07:38 Time 21:00 - Radiology Exams Ordered Rad Exams-Entire Visit: Radiology Procedures Category Date Time Status ABDOMEN AND PELVIS W/0 CONTRAS [CT] Stat Exams 06/16/24 21:23 Completed Discharge Exam General Appearance: no apparent distress, alert Neurologic Exam: alert, oriented x 3, cooperative, normal mood/affect, nml cerebellar function, sensation nml, No motor deficits Eye Exam: PERRL, EOMI, eyes nml inspection Ears, Nose, Throat Exam: normal ENT inspection, pharynx normal, moist mucous membranes Neck Exam: normal inspection, non-tender, supple, full range of motion Respiratory Exam: normal breath sounds, lungs clear, No respiratory distress Cardiovascular Exam: regular rate/rhythm, normal heart sounds Gastrointestinal/Abdomen Exam: soft, No tenderness, No mass Pelvic Exam: deferred Rectal Exam: deferred Back Exam: normal inspection, normal range of motion, No CVA tenderness, No vertebral tenderness Extremity Exam: normal inspection, normal range of motion, tenderness (and edema right bicep region) Skin Exam: normal color, warm, dry, other (bruising right ac) Final Diagnosis/Problem List - Final Discharge Diagnosis/Problem (1) Acute UTI (urinary tract infection) Current Visit: Yes Status: Resolved Assessment & Plan: - UC negative - antibiotics stopped - IVF Code(s): N39.0 - URINARY TRACT INFECTION, SITE NOT SPECIFIED (2) Acute renal failure Current Visit: Yes Status: Acute Assessment & Plan: - creat 1.15- BL normal - IVF - f/u OP with PCP for repeat labs - 2:2 N/V (3) Nausea & vomiting Current Visit: Yes Status: Resolved Assessment & Plan: - resolved since admission - tolerating a regular diet - Zofran PRN Code(s): R11.2 - NAUSEA WITH VOMITING, UNSPECIFIED (4) Hypertension Current Visit: No Status: Acute Assessment & Plan: - Controlled- continue home meds - f/u with PCP Code(s): I10 - ESSENTIAL (PRIMARY) HYPERTENSION (5) Musculoskeletal pain of right upper extremity Current Visit: Yes Status: Acute Assessment & Plan: - Right bicep region + edmea - elevate to heart level and apply ice pack- continue at home. - F/u with PCP Op if does not improve may need ortho consult. - No known injury other than lab draw this AM. Code(s): M79.601 - PAIN IN RIGHT ARM - Discharge Discharge Date: 06/18/24 Disposition: Home, Self-Care Condition: Stable Prescriptions: Continue Metoprolol Tartrate 50 mg [Lopressor 50 MG] 100 mg PO BID Aspirin EC 81 mg [Ecotrin 81 mg] 81 mg PO DAILY Amlodipine Besylate 5 mg [Norvasc 5 mg] 2.5 mg PO HS Quetiapine Fumarate 50 mg PO BID Cetirizine HCl [Allergy Relief] 10 mg PO DAILY Bupropion HCl 150 mg Sr [Wellbutrin SR 150 MG] 150 mg PO DAILY Buprenorphine 1 each TD WEEKLY Pantoprazole Sodium 40 mg PO DAILY Multivit-Min/Iron/Folic/Lutein [Multivitamin Women 50 Plus Tab] 1 each PO D AILY Lisinopril/Hydrochlorothiazide [Lisinopril-Hctz 10-12.5 mg Tab] 1 each PO DAILY Evolocumab [Repatha Sureclick] 140 mg SQ UD Empagliflozin [Jardiance] 10 mg PO DAILY Quetiapine Fumarate 300 mg PO HS Trazodone HCl 50 mg [Desyrel 50 mg] 25 mg PO HS Semaglutide [Ozempic] 1 mg SQ WEEKLY Levothyroxine Sodium 88 Mcg [Synthroid 88 Mcg] 88 mcg PO DAILY Fenofibrate Nanocrystallized [Fenofibrate] 145 mg PO DAILY Instructions: Nausea and vomiting in adults Additional Instructions: Elevate right arm to heart level and apply ice pack at home when able. If this does not improve please discuss with PCP and you may need referral to ortho. Follow up with: HANSEL GOODWIN [Primary Care Provider] - TISHA JI I [Family Provider] -
[2024-06-18 12:38] VITALS: O2SAT 98
== END 2024-06-18 13:47 | disposition home or self-care (01) ==
LOC: ED 16:39 → MED SURG 23:50
PROVIDERS: ADMIT Internal Medicine Critical Care Medicine; ATTEND Internal Medicine Critical Care Medicine
DX: N39.0 Urinary tract infection, site not specified (principal); N17.9 Acute kidney failure, unspecified; R11.2 Nausea with vomiting, unspecified; I10 Essential (primary) hypertension; M79.601 Pain in right arm; E78.5 Hyperlipidemia, unspecified; D64.9 Anemia, unspecified; Z86.73 Personal history of transient ischemic attack (TIA), and cerebral infarction without residual deficits; Z20.822 Contact with and (suspected) exposure to COVID-19; Z79.899 Other long term (current) drug therapy
CPT/HCPCS: 0241U; 36000; 36415; 74176; 80053; 81001; 82947; 83036; 83605; 83690; 83735; 84132; 84484; 85025; 85027; 87040; 87086; 87651; 93005; 96365; 96374; 99285; 93268; J0696; J1644; J2405; J3480; Q3014; A9270-GY; G0378

== ENCOUNTER 2025-02-18 17:29 | Emergency (ER) | payer MEDICARE ==
--- NOTE | 2025-02-18 17:41 | ERPHSYRPT ---
- History of Present Illness Time Seen by Provider: 02/18/25 17:41 Source: patient, family Exam Limitations: no limitations Physician History: This is a 69-year-old white female patient brought to the emergency department by the paramedics secondary to episodes of low blood pressure and dizziness. She fell 5 days ago. She did not injure her head or neck. Similar symptoms occurred today and she almost fell. Patient has not been on any new medications. She did see her cable tower operator this past week and he told her to decrease her metoprolol to one half the current dose. She was also told that her potassium was low but there was no instructions for supplementation. She has no cough. She has no fevers. She denies chest pain. She denies abdominal pain. She has no dysuria, urinary frequency or urinary urgency. She denies head injury. Patient has multiple medical issues including gastroesophageal reflux disease, hypertension, hypothyroidism, diabetes, anxiety/depression, CVA, hyperlipidemia, and stage III renal disease. She has never been diagnosed with coronary artery disease. Timing/Duration: day(s), other (Not necessarily worse today but another episode and she is concerned) Severity: mild Associated Symptoms: other (Lightheadedness, falls), No nausea, No vomiting, No abdominal pain, No shortness of breath, No chills, No chest pain, No fever Allergies/Adverse Reactions: temazepam [From Restoril] Allergy (Unknown, Verified 02/18/25 18:01) SHAKING Penicillins Allergy (Verified 02/18/25 18:01) Hives Home Medications: Aspirin EC 81 mg [Ecotrin 81 mg] 81 mg PO 3XW 08/09/12 [History] Metoprolol Tartrate 50 mg [Lopressor 50 MG] 50 mg PO BID 08/09/12 [History] Amlodipine Besylate 5 mg [Norvasc 5 mg] 5 mg PO HS 11/22/13 [History] Buprenorphine 1 patch TOP WEEKLY 06/16/24 [History] Bupropion HCl 150 mg Sr [Wellbutrin SR 150 MG] 150 mg PO DAILY 06/16/24 [History] Empagliflozin [Jardiance] 10 mg PO DAILY 06/16/24 [History] Evolocumab [Repatha Sureclick] 140 mg SQ UD 06/16/24 [History] Fenofibrate Nanocrystallized [Fenofibrate] 145 mg PO DAILY 06/16/24 [History] Lisinopril/Hydrochlorothiazide [Lisinopril-Hctz 10-12.5 mg Tab] 1 tab PO DAILY 06/16/24 [History] Pantoprazole Sodium 40 mg PO DAILY 06/16/24 [History] Quetiapine Fumarate 50 mg PO BID 06/16/24 [History] Quetiapine Fumarate 300 mg PO HS 06/16/24 [History] Semaglutide [Ozempic] 1 mg SQ WEEKLY 06/16/24 [History] Trazodone HCl 50 mg [Desyrel 50 mg] 25 mg PO HS 06/16/24 [History] Levothyroxine Sodium 75 Mcg [Synthroid 75 Mcg] 75 mcg PO DAILY 02/18/25 [History] Montelukast Sodium 10 mg [Singulair 10 MG] 10 mg PO DAILY 02/18/25 [History] Omeprazole 20 MG [Prilosec 20 mg] 20 mg PO DAILY 02/18/25 [History] Hx Tetanus, Diphtheria Vaccination/Date Given: No Hx Influenza Vaccination/Date Given: No Hx Pneumococcal Vaccination/Date Given: No Travel Risk - International Travel Have you traveled outside of the country in past 3 weeks: No - Emerging Infectious Disease Are you exhibiting symptoms associated with any current EIDs: Yes Symptoms: Abdominal Pain, Headaches/Body Aches/, Vomitting - Review of Systems Constitutional: No Symptoms Eyes: No Symptoms Ears, Nose, & Throat: No Symptoms Respiratory: No Symptoms Cardiac: No Symptoms Abdominal/Gastrointestinal: No Symptoms Genitourinary Symptoms: No Symptoms Musculoskeletal: No Symptoms Skin: No Symptoms Neurological: Other (Light headedness. Falls) Psychological: No Symptoms Endocrine: No Symptoms Hematologic/Lymphatic: No Symptoms Immunological/Allergic: No Symptoms All Other Systems: Reviewed and Negative - Past Medical History Pertinent Past Medical History: Yes Neurological History: Stroke ENT History: No Pertinent History Cardiac History: High Cholesterol, Hypertension Respiratory History: No Pertinent History Endocrine Medical History: Hypothyroidism Musculoskeletal History: Arthritis GI Medical History: GERD History: No Pertinent History Psycho-Social History: Depression Female Reproductive Disorders: Menstrual Problems - Past Surgical History Past Surgical History: Yes Neuro Surgical History: No Pertinent History Cardiac: No Pertinent History Respiratory: No Pertinent History Gastrointestinal: Appendectomy, Cholecystectomy Musculoskeletal: Joint Replacement, Orthopedic Surgery Female Surgical History: Section, Hysterectomy Other Surgical History: bilatreal knee replacement, discs removed from neck and back surgery, sinus surgery, tonisils. BRAD IN SPINE Significant Family History: no pertinent family hx - Social History Smoking Status: Never smoker Exposure to second hand smoke: Yes Drug Use: none Patient Lives Alone: No - Social Determinants of Health Will the patient participate in the screening: Yes Do you worry about a steady place to live?: No In the past 12 months,have you had to go without utilities?: No Transportation Issues: No Has anyone in your support network made you feel unsafe?: No Have you or anyone in your house had to go w/o enough food: No - Nursing Vital Signs Nursing Vital Signs: Initial Vital Signs Temperature 97.3 F 02/18/25 17:33 Pulse Rate 75 02/18/25 17:33 Respiratory Rate 18 02/18/25 17:33 Blood Pressure 137/67 02/18/25 17:33 O2 Sat by Pulse Oximetry 100 02/18/25 17:33 Pain Scale Pain Intensity 0 - Physical Exam General Appearance: no apparent distress, alert, anxiety Eye Exam: PERRL/EOMI, eyes nml inspection Ears, Nose, Throat Exam: normal ENT inspection, moist mucous membranes Neck Exam: normal inspection, non-tender, supple, full range of motion Respiratory Exam: normal breath sounds, lungs clear, airway intact, No chest tenderness, No respiratory distress Cardiovascular Exam: regular rate/rhythm, normal heart sounds, normal peripheral pulses Gastrointestinal/Abdomen Exam: soft, normal bowel sounds, No tenderness Pelvic Exam: not done Rectal Exam: not done Back Exam: normal inspection, normal range of motion, No CVA tenderness, No vertebral tenderness Extremity Exam: normal inspection, normal range of motion, pelvis stable Neurologic Exam: alert, oriented x 3, cooperative, bale stacker II-XII nml as tested, nml cerebellar function, nml station & gait, sensation nml Skin Exam: normal color, warm, dry Lymphatic Exam: No adenopathy SpO2 Interpretation: normal O2 Delivery: Room Air - Course Nursing assessment & vital signs reviewed: Yes EKG Interpreted by Me: RATE (74), Sinus Rhythm, Left [place] Deviation, NORMAL INTERVALS, NORMAL QRS, Other (No acute ischemia. QTc is 411) Ordered Tests: Active Orders 24 hr Category Date Time Status EKG-ER Only STAT Care 02/18/25 17:56 Active IV Insertion STAT Care 02/18/25 17:56 Active HEAD WITHOUT CONTRAST [CT] Stat Exams 02/18/25 17:56 Completed CBC W DIFF Stat Lab 02/18/25 18:30 Completed CMP Stat Lab 02/18/25 18:40 Completed ETHYL ALCOHOL Stat Lab 02/18/25 18:40 Completed MAGNESIUM Stat Lab 02/18/25 18:40 Completed TROPONIN Q4H Lab 02/18/25 18:40 Completed TROPONIN Q4H Lab 02/18/25 22:00 Ordered TROPONIN Q4H Lab 02/19/25 02:00 Ordered TSH [TSH, 3RD Generation] Stat Lab 02/18/25 18:40 Received UA W/RFX UR CULTURE Stat Lab 02/18/25 19:00 Completed Medication Summary Generic Name Dose Route Start Last Admin Trade Name Freq PRN Reason Stop Dose Admin Sodium Chloride 1,000 mls @ 50 mls/hr 02/18/25 18:00 02/18/25 18:47 Sodium Chloride 0.9% 1000 Ml IV 03/20/25 17:59 50 mls/hr .Q20H LAINEY Administration Lab/Rad Data: Laboratory Result Diagrams 02/18/25 18:30 02/18/25 18:40 Laboratory Results 02/18/25 02/18/25 02/18/25 Range/Units 19:00 18:40 18:40 WBC (3.98-10.04) x10^3/uL RBC (3.93-5.22) x10^6/uL Hgb (11.2-15.7) g/dL Hct (34.1-44.9) % MCV (79.4-94.8) fL MCH (25.6-32.2) pg MCHC (32.2-35.5) g/dL RDW (11.7-14.4) % Plt Count (182-369) x10^3/uL MPV (9.4-12.3) fL Gran % (34.0-71.1) % Immature Gran % (Auto) (0.001-0.429) % Nucleat RBC Rel Count (0.00-0.2) % Eos # (Auto) (0.04-0.36) x10^3/uL Immature Gran # (Auto) (0.001-0.031) x10^3u/L Absolute Lymphs (auto) (1.18-3.74) x10^3/uL Absolute Monos (auto) (0.24-0.86) x10^3/uL Absolute Nucleated RBC (0.00-0.012) x10^3u/L Lymphocytes % (19.3-51.7) % Monocytes % (4.7-12.5) % Eosinophils % (0.7-5.8) % Basophils % (0.1-1.2) % Absolute Granulocytes (1.56-6.13) x10^3/uL Basophils # (0.01-0.08) x10^3/uL Sodium 138 (135-145) mmol/L Potassium 3.9 (3.5-5.1) mmol/L Chloride 101 (98-107) mmol/L Carbon Dioxide 27 (22-30) mmol/L Anion Gap 12.7 (5-15) MEQ/L BUN 31 H (7-17) mg/dL Creatinine 1.53 H (0.52-1.04) mg/dL Estimated GFR 36.2 ML/MIN Glucose 93 (74-106) mg/dL Calcium 9.3 (8.4-10.2) mg/dL Magnesium 1.9 (1.6-2.3) mg/dL Total Bilirubin 0.40 (0.2-1.3) mg/dL AST 35 (14-36) U/L ALT 17 (0-35) U/L Alkaline Phosphatase 51 (38-126) U/L Troponin I < 0.012 (0.000-0.033) ng/mL Serum Total Protein 5.8 L (6.3-8.2) g/dL Albumin 3.8 (3.5-5.0) g/dL Urine Color Yellow (Yellow) Urine Appearance Clear (Clear) Urine pH 6.5 (4.6-8.0) Ur Specific [place] 1.015 (1.005-1.030) Urine Protein Negative (Negative) Urine Glucose (UA) >=1000 A (Negative) mg/dL Urine Ketones Negative (Negative) Urine Blood Negative (Negative) Urine Nitrite Negative (Negative) Urine Bilirubin Negative (Negative) Urine Urobilinogen 0.2 (0.2) mg/dL Ur Leukocyte Esterase Trace A (Negative) U Hyaline Cast (Auto) NONE SEEN (0-2) /LPF Urine Microscopic RBC 0-2 (0-5) /HPF Urine Microscopic WBC 3-5 (0-5) /HPF Ur Epithelial Cells None Seen (None Seen) /HPF Urine Bacteria None Seen (None Seen) /HPF Urine Culture Reflexed NO (NO) Ethyl Alcohol < 10 (0-10) mg/dL 02/18/25 Range/Units 18:30 WBC 5.2 (3.98-10.04) x10^3/uL RBC 3.23 L (3.93-5.22) x10^6/uL Hgb 9.4 L (11.2-15.7) g/dL Hct 29.6 L (34.1-44.9) % MCV 91.6 (79.4-94.8) fL MCH 29.1 (25.6-32.2) pg MCHC 31.8 L (32.2-35.5) g/dL RDW 12.2 (11.7-14.4) % Plt Count 193 (182-369) x10^3/uL MPV 10.0 (9.4-12.3) fL Gran % 70.0 (34.0-71.1) % Immature Gran % (Auto) 0.6 H (0.001-0.429) % Nucleat RBC Rel Count 0.0 (0.00-0.2) % Eos # (Auto) 0.14 (0.04-0.36) x10^3/uL Immature Gran # (Auto) 0.03 (0.001-0.031) x10^3u/L Absolute Lymphs (auto) 0.97 L (1.18-3.74) x10^3/uL Absolute Monos (auto) 0.39 (0.24-0.86) x10^3/uL Absolute Nucleated RBC 0.00 (0.00-0.012) x10^3u/L Lymphocytes % 18.6 L (19.3-51.7) % Monocytes % 7.5 (4.7-12.5) % Eosinophils % 2.7 (0.7-5.8) % Basophils % 0.6 (0.1-1.2) % Absolute Granulocytes 3.66 (1.56-6.13) x10^3/uL Basophils # 0.03 (0.01-0.08) x10^3/uL Sodium (135-145) mmol/L Potassium (3.5-5.1) mmol/L Chloride (98-107) mmol/L Carbon Dioxide (22-30) mmol/L Anion Gap (5-15) MEQ/L BUN (7-17) mg/dL Creatinine (0.52-1.04) mg/dL Estimated GFR ML/MIN Glucose (74-106) mg/dL Calcium (8.4-10.2) mg/dL Magnesium (1.6-2.3) mg/dL Total Bilirubin (0.2-1.3) mg/dL AST (14-36) U/L ALT (0-35) U/L Alkaline Phosphatase (38-126) U/L Troponin I (0.000-0.033) ng/mL Serum Total Protein (6.3-8.2) g/dL Albumin (3.5-5.0) g/dL Urine Color (Yellow) Urine Appearance (Clear) Urine pH (4.6-8.0) Ur Specific [place] (1.005-1.030) Urine Protein (Negative) Urine Glucose (UA) (Negative) mg/dL Urine Ketones (Negative) Urine Blood (Negative) Urine Nitrite (Negative) Urine Bilirubin (Negative) Urine Urobilinogen (0.2) mg/dL Ur Leukocyte Esterase (Negative) U Hyaline Cast (Auto) (0-2) /LPF Urine Microscopic RBC (0-5) /HPF Urine Microscopic WBC (0-5) /HPF Ur Epithelial Cells (None Seen) /HPF Urine Bacteria (None Seen) /HPF Urine Culture Reflexed (NO) Ethyl Alcohol (0-10) mg/dL - Progress Progress: improved, re-examined Progress Note: 02/18/25 18:05 My medical decision making and the assignment of moderate complexity is based on review of the patient's past medical history, review of the patient's medication list, review the patient drug allergy list, history present illness and physical findings on examination. The workup in this patient includes placement of intravenous line, infusion of low rate crystalloid, CBC, CMP, magnesium level, free T4, TSH, twelve-lead EKG, troponin level, urinalysis, CT scan of the head without contrast and orthostatics. Differential diagnosis includes but is not limited to medication side effect, dehydration, urinary tract infection, acute intracranial abnormality, arrhythmia, electrolyte abnormality, anemia, thyroid abnormalities This patient's orthostatic levels were interpreted by me. Patient does have orthostatic change in her blood pressure when she sits up versus standing up. Her heart rate did not change. 02/18/25 19:[address] scan of the head without contrast. The impression reads senile brain with involutional changes. No evidence of acute infarct, hemorrhage or mass effect. 02/18/25 19:28 I interpreted the patient's laboratory data results. Based on the laboratory data results, the patient does have chronic anemia. Today's hemoglobin value of 9.4 is in the range where it has been since May 2024. The patient also has chronic renal disease and the GFR is in the range where it has been when compared to levels dating back to May 2024. Her urinalysis does not show urinary tract infection or evidence of ketonuria. Counseled pt/family regarding: lab results, diagnosis, need for follow-up, rad results Medical Desision Making - Independent Historian Additional History obtained from: Station Attendant/EMT - Diagnostic Testing Diagnostic test were ordered, analyzed, and reviewed by me: Yes Radiological Interpretation: Reviewed by me, Teleradiologist Report - Risk of complications Low Risk: Low risk of morbidity from additional dx testing or treatment - Departure Departure Disposition: Home Clinical Impression: Lightheadedness, Chronic anemia, Chronic renal disease Condition: Stable Critical Care Time: No Referrals: HANSEL GOODWIN [Primary Care Provider, [facility]] - Follow up/PCP as directed Additional Instructions: Drink plenty of clear liquids. Hold your blood pressure medication for tonight and tomorrow, 02/19/2025. Keep a morning noon and night log of your blood pressure as well as the morning blood pressure reading on 02/20/2025. Call your primary prescribing provider on Thursday morning, 02/20/2025. To make arranges for follow-up appointment to be seen in the next 2 to 3 days as well as provide you with instructions for taking your blood pressure medication.
[2025-02-18 17:42] VITALS: TEMP 97.3
[2025-02-18] MEDS ORDERED: Sodium Chloride 0.9% 1000 ML 1,000 ML ONE (18:41)
[2025-02-18 18:42] LABS: Absolute Neutrophil Ct (ANC) 3.66 x10^3/uL (1.56-6.13); BASOPHIL % 0.6 % (0.1-1.2); Basophil (Absolute #) 0.03 x10^3/uL (0.01-0.08); Eosinophil % 2.7 % (0.7-5.8); Eosinophil (Absolute #) 0.14 x10^3/uL (0.04-0.36); Hematocrit 29.6 % (34.1-44.9); Hemoglobin 9.4 g/dL (11.2-15.7); IMMATURE GRAN # 0.03 x10^3u/L (0.001-0.031); IMMATURE GRAN % 0.6 % (0.001-0.429); Lymphocyte (Absolute #) 0.97 x10^3/uL (1.18-3.74); Lymphocytes % 18.6 % (19.3-51.7); Mean Cell Volume 91.6 fL (79.4-94.8); Mean Corpuscular Hemoglobin 29.1 pg (25.6-32.2); Mean Corpuscular Hgb Concent. 31.8 g/dL (32.2-35.5); Monocyte (Absolute #) 0.39 x10^3/uL (0.24-0.86); Monocytes % 7.5 % (4.7-12.5); Platelet Count 193 x10^3/uL (182-369); Red Blood Count 3.23 x10^6/uL (3.93-5.22); Red Cell Distribution Width 12.2 % (11.7-14.4); White Blood Count 5.2 x10^3/uL (3.98-10.04)
[2025-02-18] MEDS: Sodium Chloride 0.9% 1000 ML 1,000 ML IV SCH (18:47)
--- NOTE | 2025-02-18 18:55 | XRAY ---
CLINICAL HISTORY: Lightheadedness; falls COMPARISON: None. TECHNIQUE: Axial non-contrast CT scan of the brain was performed from the skull base to the high parietal region. One of the following dose reduction techniques were utilized for this exam: Automated exposure control, adjustment of the mA and/or kV according to patient size, use of iterative reconstruction. FINDINGS: Brain Parenchyma: Normal attenuation of the cerebral hemispheres, cerebellum, and brainstem. No evidence of acute infarct, hemorrhage, or mass effect. No abnormal areas of hypo- or hyperattenuation. Ventricular System: Mild dilatation of the cerebral ventricles with no midline shift or deformity. Prominent cortical sulci and extra-axial CSF spaces. Subarachnoid Spaces: No evidence of subarachnoid hemorrhage or extra-axial fluid collections. Cerebellum and Brainstem: Normal size and signal. No masses, lesions, or areas of abnormal density. Orbits: Normal appearance of the globes, optic nerves, and extraocular muscles. No evidence of orbital masses or abnormal density. Sinuses: Clear paranasal sinuses. No evidence of sinusitis or mucosal thickening. Mastoid Air Cells: Clear mastoid air cells. No evidence of mastoiditis. Skull: Normal skull morphology. IMPRESSION: 1. Senile brain involutional changes. 2. Early changes of a stroke may not be detected on a CT scan. If strong clinical suspicion of stroke then suggest MRI with diffusion-weighted imaging. Electronically Signed by: Nba Castillo MD. (02/18/2025 18:50:45 EDT)
[2025-02-18 18:57] LABS: ALBUMIN 3.8 g/dL (3.5-5.0); ALKALINE PHOSPHATASE 51 U/L (38-126); ANION GAP 12.7 MEQ/L (5-15); BLOOD UREA NITROGEN 31 mg/dL (7-17); CHLORIDE 101 mmol/L (98-107); Calcium 9.3 mg/dL (8.4-10.2); Carbon Dioxide 27 mmol/L (22-30); Creatinine 1 1.53 mg/dL (0.52-1.04); EST GLOMERULAR FILTRATION RATE 36.2 ML/MIN; ETHYL ALCOHOL < 10 mg/dL (0-10); Glucose 93 mg/dL (74-106); MAGNESIUM 1.9 mg/dL (1.6-2.3); Potassium 3.9 mmol/L (3.5-5.1); SGOT/AST 35 U/L (14-36); SGPT/ALT 17 U/L (0-35); SODIUM 138 mmol/L (135-145); Total Protein 5.8 g/dL (6.3-8.2)
[2025-02-18 19:11] LABS: Appearance Clear (Clear); Bacteria None Seen /HPF (None Seen); Bilirubin Negative (Negative); Blood Negative (Negative); Epithelial Cells None Seen /HPF (None Seen); Glucose, Urine >=1000 mg/dL (Negative); Hyaline Casts NONE SEEN /LPF (0-2); Ketones Negative (Negative); Leukocyte Esterase Trace (Negative); Nitrite Negative (Negative); Ph 6.5 (4.6-8.0); Protein,Urine Dip Negative (Negative); RBC 0-2 /HPF (0-5); Specific Gravity 1.015 (1.005-1.030); Urobilinogen 0.2 mg/dL (0.2)
[2025-02-18 21:10] VITALS: BP 145/71; PULSE 74; RESP 17; O2SAT 98
== END 2025-02-18 21:04 | disposition home or self-care (01) ==
LOC: ED 17:29
DX: D64.9 Anemia, unspecified (principal); R42 Dizziness and giddiness; I12.9 Hypertensive chronic kidney disease with stage 1 through stage 4 chronic kidney disease, or unspecified chronic kidney disease; E11.22 Type 2 diabetes mellitus with diabetic chronic kidney disease; N18.30 Chronic kidney disease, stage 3 unspecified; Z79.84 Long term (current) use of oral hypoglycemic drugs; Z79.85 Long-term (current) use of injectable non-insulin antidiabetic drugs; Z79.899 Other long term (current) drug therapy
CPT/HCPCS: 36415; 70450; 80053; 81001; 82077; 83735; 84439; 84443; 84484; 85025; 93005; 93041; 96360; 96361; 99284; 99285